=== PATIENT | male | born 1985 | race American Indian/Alaskan Native ===

== ENCOUNTER 2020-02-11 01:08 | Emergency (ER) | payer SELFPAY ==
--- NOTE | 2020-02-11 01:49 | XRay Report ---
LEFT FOREARM AP AND LATERAL VIEWS INDICATION / CLINICAL INFORMATION: fall with pain and swelling and deformity. COMPARISON: None available. FINDINGS: There is a comminuted intra-articular fracture in the distal radius with volar is placement of the pr edominant distal fracture fragments. There is also a mildly displaced ulnar styloid process fracture. Signer Name: Dano Hodgson MD Signed: 02/11/2020 1:44 AM Workstation Name: [id number]
[2020-02-11] MEDS ORDERED: oxyCODONE /ACETAMINOPHEN 5-325MG TAB PO ONE ×2 (02:56→03:05)
--- NOTE | 2020-02-11 03:59 | Emergency Department Report ---
ED Upper Extremity Inj HPI - General Chief Complaint: Fall Stated Complaint: FALL/ ARM PAIN Time Seen by Provider: 02/11/20 02:52 Source: patient Mode of arrival: Ambulatory Limitations: No Limitations - History of Present Illness Initial Comments: 34-year-old male presents to the hospital complaining of pain swelling to left wrist after falling off of a hover board. Positive deformity noted. Pain is moderate to severe in intensity, constant, worse with movement palpation. Patient is right-hand dominant. Patient also has history of hypertension but is not currently on meds. States that he checks his blood pressure and it is in normal range - Related Data Previous Rx's Medication Instructions Recorded Last Taken Type HYDROcodone/APAP 5-325 [[place] 1 each PO Q6HR PRN #14 tablet 02/11/20 Unknown Rx 5/325] Ibuprofen [Motrin] 800 mg PO Q8HR PRN #20 tablet 02/11/20 Unknown Rx Allergies Allergy/AdvReac Type Severity Reaction Status Date / Time No Known Allergies Allergy Verified 02/11/20 01:14 ED Review of Systems ROS: Stated complaint: FALL/ ARM PAIN Other details as noted in HPI Comment: All other systems reviewed and negative ED Past Medical Hx - Past Medical History Previous Medical History?: Yes Hx Hypertension: Yes - Surgical History Past Surgical History?: Yes Additional Surgical History: right hand - Social History Smoking Status: Never Smoker Substance Use Type: None - Medications Home Medications: Home Medications Medication Instructions Recorded Confirmed Last Taken Type HYDROcodone/APAP 5-325 [[place] 1 each PO Q6HR PRN #14 tablet 02/11/20 Unknown Rx 5/325] Ibuprofen [Motrin] 800 mg PO Q8HR PRN #20 tablet 02/11/20 Unknown Rx ED Physical Exam - General Limitations: No Limitations - Other Other exam information: General: No acute distress Head: Atraumatic Eyes: normal appearance ENT: Moist mucous membranes Neck: Normal appearance, no midline tenderness Chest: Clear to auscultation bilaterally CV: Regular rate and rhythm Abdomen: Soft, normal bowel sounds, nontender, nondistended, no rebound or guarding Back: Normal inspection Extremity: Left wrist deformity with diffuse tenderness, 2+ radial pulse. Cap refill less than 2 seconds. Sensation intact along ulnar, radial, and and medial nerve distribution of the hand. Limited movement secondary to pain Neuro: Alert O x 3, no facial asymmetry, speech clear, no gross motor sensory deficit Psych: Appropriate behavior Skin: No rash ED Course Vital Signs 02/11/20 02/11/20 02/11/20 01:11 03:10 04:02 Temperature 99.4 F Pulse Rate 109 H 89 Respiratory 18 20 18 Rate Blood Pressure 166/105 Blood Pressure 146/92 [Right] O2 Sat by Pulse 97 99 Oximetry ED Medical Decision Making - Medical Decision Making Sugar tong forearm splint placed by tech and inspected by me. Cap refill remains less than 2 seconds and patient able to move his fingers. Sling provided. Patient provided Percocet in the ED and will be discharged on pain medications and orthopedic follow-up Critical Care Time: No Critical care attestation.: If time is entered above; I have spent that time in minutes in the direct care of this critically ill patient, excluding procedure time. ED Disposition Clinical Impression: Ulna styloid fracture, closed Distal radius fracture, left Qualifiers: Encounter type: initial encounter Fracture type: closed Disposition: - TO HOME OR SELFCARE Is pt being admited?: No Does the pt Need Aspirin: No Condition: Stable Instructions: Wrist Fracture in Adults (ED) Additional Instructions: Take the medication as prescribed. Follow-up with orthopedic doctor provided with orthopedic doctor of your choice. Return if symptoms worsen as indicated by your discharge instructions. Prescriptions: Ibuprofen [Motrin] 800 mg PO Q8HR PRN #20 tablet PRN Reason: Pain, Moderate (4-6) HYDROcodone/APAP 5-325 [[place] 5/325] 1 each PO Q6HR PRN #14 tablet PRN Reason: Pain Referrals: ALEENA PARADA MD [Staff Physician] - 3-5 Days Time of Disposition: 03:59
[2020-02-11 04:03] VITALS: BP 146/92
== END 2020-02-11 04:02 | disposition home or self-care (01) ==
LOC: ED 01:08
DX: S52.502A Unspecified fracture of the lower end of left radius, initial encounter for closed fracture (principal); S52.613A Displaced fracture of unspecified ulna styloid process, initial encounter for closed fracture; I10 Essential (primary) hypertension; Z79.899 Other long term (current) drug therapy; Z98.890 Other specified postprocedural states; W18.39XA Other fall on same level, initial encounter; Y92.89 Other specified places as the place of occurrence of the external cause; Y93.89 Activity, other specified; Y99.8 Other external cause status
CPT/HCPCS: 99283